=== PATIENT | female | born 1995 | race Caucasian/White ===

== ENCOUNTER 2017-09-23 14:14 | Emergency (ER) | payer BC, OTHER ==
[~2017-09-23] VITALS: Ht 162.6 cm; Wt 57.4 kg
[~2017-09-23 14:14] MED LIST: BCPILLS PO; CLON0.5T3 PO
[2017-09-23 14:36] VITALS: TEMP 36.7; Ht 162.6 cm; Wt 57.4 kg
[2017-09-23] MEDS ORDERED: SODIUM CHLORIDE 0.9% 1000ML 1,000 ML IV STA (14:52)
[2017-09-23] MEDS ORDERED: ONDANSETRON INJ 2 MG/ML 2 ML VIAL IV STA (14:52)
--- NOTE | 2017-09-23 14:54 | EMERGENCY ROOM VISIT NOTE ---
History Report prepared by Juan Ramon: Louis Hurst Under the Supervision of: Dr. Daryl Frazier M.D. First contact with patient: 14:45 Chief Complaint: VOMITING Stated Complaint: THROWING UP BLOOD Nursing Triage Summary: Patient presents with c/o vomiting since this morning around 0900 States she has been vomiting blood States blood is dark colored Also c/o abominal pain States she was drinking alcohol last night History of Present Illness The patient is a 22 year old female who presents to the Emergency Room with complaints of episodes of vomiting that started around 6 hours ago. She says that she was drinking alcohol last night. The patient says that she has been nauseous, and has been vomiting dark red blood during each of her 5 episodes. She notes that she has been having abdominal pain as well. She says that she has had some trouble breathing due to the vomiting. She adds that her nose was bleeding earlier. The patient denies any chest pain. She says that she vomited up Aspirin this morning. She is not on a blood thinner. The patient notes no history of stomach ulcers or gallbladder problems. Source of History: patient Onset: Around 6 hours ago Position: other (global - vomiting) Quality: other (dark red blood every time) Timing: other (episodes) Associated Symptoms: + SOB, + nausea, + abdominal pain, No chest pain Note: Nose bleeding earlier. Review of Systems See HPI for pertinent positives & negatives. A total of 10 systems reviewed and were otherwise negative. Past Medical & Surgical Medical Problems: (1) Anxiety Family History Patient reports no known family medical history. Social History Smoking Status: Never Smoker Drug Use: none Marital Status: single Housing Status: lives with friends Occupation Status: [employer] student Current/Historical Medications Scheduled Alprazolam (Xanax), 0.25 MG PO PRN Amphetamine-Dextroamphetamine 30MG (Adderall Xr 30MG), 30 MG PO PRN Control Pills ( Control Pills), 1 TAB PO DAILY Omeprazole (Omeprazole), 1 TAB PO DIRECTED Allergies Coded Allergies: Tetracycline (Verified Allergy, Intermediate, increased intracranial pressure, 10/28/15) Physical Exam Vital Signs Date Time Temp Pulse Resp B/P (MAP) Pulse Ox O2 Delivery O2 Flow Rate FiO2 09/23/17 17:24 96 16 117/74 97 09/23/17 16:48 91 20 114/77 99 Room Air 09/23/17 16:15 88 09/23/17 14:36 36.7 110 16 127/86 98 Room Air Physical Exam GENERAL: Patient is mildly anxious appearing and in no acute distress. HEENT: No acute trauma, normocephalic atraumatic, mucous membranes moist, no nasal congestion, no scleral icterus. NECK: No stridor, no adenopathy, no meningismus, trachea is midline. LUNGS: No dyspnea. Clear to auscultation and equal bilaterally. No wheeze, no rhonchi. HEART: Tachycardic rate and regular rhythm. No murmurs, rubs, gallops appreciated. ABDOMEN: Soft, mild epigastric tenderness to palpation, bowel sounds positive, no masses appreciated, no peritonitis. BACK: No midline tenderness, no CVA tenderness EXTREMITIES: Normal motion all extremities, no cyanosis, no edema. NEUROLOGIC: Alert and oriented, no acute motor or sensory deficits, no focal weakness, cranial nerves grossly intact. SKIN: No rash, no jaundice, no diaphoresis. Medical Decision & Procedures Laboratory Results 09/23/17 15:04 Red Blood Count 4.60, Mean Corpuscular Volume 88.9, Mean Corpuscular Hemoglobin 29.8, Mean Corpuscular Hemoglobin Concent 33.5, Mean Platelet Volume 9.1, Neutrophils (%) (Auto) 84.1, Lymphocytes (%) (Auto) 13.4, Monocytes (%) (Auto) 2.1, Eosinophils (%) (Auto) 0.0, Basophils (%) (Auto) 0.3, Neutrophils # (Auto) 7.47, Lymphocytes # (Auto) 1.19, Monocytes # (Auto) 0.19, Eosinophils # (Auto) 0.00, Basophils # (Auto) 0.03 09/23/17 15:04 Test 09/23/17 15:04 White Blood Count 8.89 K/uL (4.8-10.8) Red Blood Count 4.60 M/uL (4.2-5.4) Hemoglobin 13.7 g/dL (12.0-16.0) Hematocrit 40.9 % (37-47) Mean Corpuscular Volume 88.9 fL (80-100) Mean Corpuscular Hemoglobin 29.8 pg (25-34) Mean Corpuscular Hemoglobin Concent 33.5 g/dl (32-36) Platelet Count 316 K/uL (130-400) Mean Platelet Volume 9.1 fL (7.4-10.4) Neutrophils (%) (Auto) 84.1 % Lymphocytes (%) (Auto) 13.4 % Monocytes (%) (Auto) 2.1 % Eosinophils (%) (Auto) 0.0 % Basophils (%) (Auto) 0.3 % Neutrophils # (Auto) 7.47 K/uL (1.4-6.5) Lymphocytes # (Auto) 1.19 K/uL (1.2-3.4) Monocytes # (Auto) 0.19 K/uL (0.11-0.59) Eosinophils # (Auto) 0.00 K/uL (0-0.5) Basophils # (Auto) 0.03 K/uL (0-0.2) RDW Standard Deviation 42.7 fL (36.4-46.3) RDW Coefficient of Variation 13.1 % (11.5-14.5) Immature Granulocyte % (Auto) 0.1 % Immature Granulocyte # (Auto) 0.01 K/uL (0.00-0.02) Anion Gap 11.0 mmol/L (3-11) Est Creatinine Clear Calc Drug Dose 98.6 ml/min Estimated GFR () 126.0 Estimated GFR (Non- 108.7 BUN/Creatinine Ratio 11.4 (10-20) Calcium Level 9.4 mg/dl (8.5-10.1) Total Bilirubin 0.2 mg/dl (0.2-1) Direct Bilirubin < 0.1 mg/dl (0-0.2) Aspartate Amino Transf (AST/SGOT) 145 U/L (15-37) Alanine Aminotransferase (ALT/SGPT) 51 U/L (12-78) Alkaline Phosphatase 68 U/L (45-117) Total Protein 8.9 gm/dl (6.4-8.2) Albumin 4.5 gm/dl (3.4-5.0) Lipase 98 U/L (73-393) Laboratory results as reviewed by me. Medications Administered Medications (Trade) Dose Ordered Sig/Dino Route Start Time Stop Time Status Last Admin Dose Admin Sodium Chloride 1,000 ml @ 999 mls/hr Q1H1M STAT IV 09/23/17 14:52 09/23/17 15:52 DC 09/23/17 15:21 999 MLS/HR Ondansetron HCl (Zofran Inj) 4 mg NOW STAT IV 09/23/17 14:52 09/23/17 14:53 DC 09/23/17 15:22 4 MG Pantoprazole Sodium 40 mg/ Syringe 10 ml @ 5 mls/min NOW ONCE IV 09/23/17 15:00 09/23/17 15:01 DC 09/23/17 15:22 5 MLS/MIN Diphenhydramine HCl (Benadryl Inj) 25 mg NOW STAT IV 09/23/17 15:42 09/23/17 15:43 DC 09/23/17 15:52 25 MG Prochlorperazine Edisylate (Compazine Inj) 5 mg NOW STAT IV 09/23/17 15:42 09/23/17 15:43 DC 09/23/17 15:52 5 MG Ondansetron HCl (ZOFRAN ODT 4MG Home Pack) 1 homepack UD ONCE PO 09/23/17 17:15 09/23/17 17:16 DC 09/23/17 17:23 1 HOMEPACK ED Course 1446: The patient was evaluated in room A3. A complete history and physical exam was performed. 1542: I reevaluated the patient and she is still feeling nauseous but it is improved. I discussed trying different medications and she agrees. 1600: I reevaluated the patient and she is having a dystonic reaction to the Compazine and Benadryl. 1700: Reevaluated the patient and she feels much better with no further nausea. She would like to go home. Discussed results and discharge instructions. I discussed the importance of avoiding stomach irritants, keeping well hydrated and sticking to bland diet. I discussed symptoms requiring returning to ER. She verbalized understanding and agreement. The patient is ready for discharge. I told the patient she needs to follow-up with GI. Medical Decision Differential: Gastroenteritis, Food Borne, Esophageal Perforation, , Electrolyte Abnormality, Dehydration, Intraabdominal Infection, UTI/ Pyelonephritis, Bowel Obstruction, Biliary Pathology, amongst other pathology entertained. 22 yr old female arrives for evaluation of hematemesis after night of drinking. Anxious and hung over with mild tachy which improved. Given Fluids/Zofran with improvement but still some symptoms thus Benadryl/Compazine for which she had a bit of dystonic reaction which resolved prior to Ativan being given. Symptoms gone and feeling well. Vitals stable, no further vomiting, no anemia. She has not been having black/bloody stools as yet. I suspect she likely has PUD which bleed, though Eufemia Diaz possible as well. Nontender abdomen on repetitive exams and I do not feel imaging indicated. I do not feel she meets criteria for emergent EGD at this time. Stressed follow up with GI as outpatient either discuss with [facility] or PCP. Reviewed at length with her regarding need to avoid etoh and other foods that would worsen symptoms. Discussed symptoms requiring RTED. Medication Reconcilliation Current Medication List: was personally reviewed by me Blood Pressure Screening Patient's blood pressure: Normal blood pressure Impression Primary Impression: Hematemesis/vomiting blood Additional Impressions: Vomiting Hangover with complication Scribe Attestation The scribe's documentation has been prepared under my direction and personally reviewed by me in its entirety. I confirm that the note above accurately reflects all work, treatment, procedures, and medical decision making performed by me. Departure Information Dispostion Home / Self-Care Prescriptions Omeprazole (OMEPRAZOLE) 20 Mg Tab 1 TAB PO DIRECTED, #45 TAB 3 Refills Take One Tablet twice daily for 7 days and then once daily until seen by Gastroenterology or Primary Provider Prov: Daryl Frazier M.D. 09/23/17 Referrals No Doctor, Assigned (PCP) Patient Instructions [facility] Additional Instructions Keep well hydrated and stick to a bland diet over the next few days. Avoid NSAIDs (Motrin, Aleve, ibuprofen, Advil, naproxen, etc) and Aspirin. Tylenol is OK to use. Avoid spicy and tomato based foods. Avoid excessive caffeine and other stimulant use. Return immediately if increased vomiting, passing out, increased pain, bloody stools, or other concerning symptoms. Follow up with a [facility]. Problem Qualifiers
[2017-09-23] MEDS ORDERED: ALPR0.25 PO (14:55)
[2017-09-23] MEDS ORDERED: AMPH30CA3 PO (14:55)
[2017-09-23] MEDS ORDERED: PANTOprazole INJ 40 MG in SYRINGE 0 ML IV ONE (15:00)
[2017-09-23 15:12] LABS: BASO % 0.3 %; BASO ABS # 0.03 K/uL (0-0.2); HEMATOCRIT 40.9 % (37-47); HEMOGLOBIN 13.7 g/dL (12.0-16.0); IG# 0.01 K/uL (0.00-0.02); LYMPH % 13.4 %; LYMPH ABS # 1.19 K/uL (1.2-3.4); MEAN CELL VOLUME 88.9 fL (80-100); MEAN CORPUSCULAR HEMOGLOBIN 29.8 pg (25-34); MEAN CORPUSCULAR HGB CONC 33.5 g/dl (32-36); MEAN PLATELET VOLUME 9.1 fL (7.4-10.4); MONO % 2.1 %; MONO ABS # 0.19 K/uL (0.11-0.59); NEUT % 84.1 %; NEUT ABS # 7.47 K/uL (1.4-6.5); PLATELET COUNT 316 K/uL (130-400); RED CELL DISTRIBUTION WIDTH CV 13.1 % (11.5-14.5); RED CELL DISTRIBUTION WIDTH SD 42.7 fL (36.4-46.3); WHITE BLOOD COUNT 8.89 K/uL (4.8-10.8)
[2017-09-23 15:30] LABS: ALBUMIN 4.5 gm/dl (3.4-5.0); ALT/SGPT 51 U/L (12-78); AST/SGOT 145 U/L (15-37); BLOOD UREA NITROGEN 9 mg/dl (7-18); CALCIUM 9.4 mg/dl (8.5-10.1); CARBON DIOXIDE 25 mmol/L (21-32); CREATININE 0.78 mg/dl (0.60-1.20); GLUCOSE 89 mg/dl (70-99); LIPASE 98 U/L (73-393); POTASSIUM 3.7 mmol/L (3.5-5.1); SODIUM 142 mmol/L (136-145)
[2017-09-23 15:33] LABS: ALKALINE PHOSPHATASE 68 U/L (45-117); TOTAL PROTEIN 8.9 gm/dl (6.4-8.2)
[2017-09-23] MEDS ORDERED: PROCHLORPERAZINE 5 MG/ML 2 ML VIAL IV STA (15:42)
[2017-09-23] MEDS ORDERED: DiphenhydrAMINE HCL 50 MG/ML VIAL IV STA (15:42)
[2017-09-23] MEDS ORDERED: LORAZEPAM 2 MG/ML 1 ML VIAL IV STA (16:02)
[2017-09-23] MEDS ORDERED: OMEP20TA PO (17:08)
[2017-09-23] MEDS ORDERED: ONDANSETRON HOME PACK 4MG OD TAB PO ONE (17:15)
[2017-09-23 17:24] VITALS: BP 117/74; PULSE 96; O2SAT 97
== END 2017-09-23 17:25 | disposition home or self-care (01) ==
LOC: C.EDB 14:15 → C.EDA 17:25
DX: K92.0 Hematemesis (principal); F10.129 Alcohol abuse with intoxication, unspecified; F41.9 Anxiety disorder, unspecified; G24.02 Drug induced acute dystonia; T43.3X5A Adverse effect of phenothiazine antipsychotics and neuroleptics, initial encounter; T45.0X5A Adverse effect of antiallergic and antiemetic drugs, initial encounter; Z79.3 Long term (current) use of hormonal contraceptives; Z79.899 Other long term (current) drug therapy